=== PATIENT | male | born 1965 | race African-American/Black ===

== ENCOUNTER 2018-04-01 16:41 | Emergency (ER) | payer BC, OTHER ==
[2018-04-01 16:54] VITALS: TEMP 98; BMI 37.5
--- NOTE | 2018-04-01 17:15 | PDOC ---
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 The patient states that he's felt congested over the past few days and tried to clear his throat/lungs today by coughing. He states that he coughed hard and felt a sharp/pressure like pain in his R anterior/inferior chest which occurred only when he coughed or sneezed, is no longer present, did not radiate, and did not have any alleviating factors. He denies any current CP, SOB, nausea, vomiting, diaphoresis. Past History - Past Medical History Allergies/Adverse Reactions: Allergies Allergy/AdvReac Type Severity Reaction Status Date / Time No Known Allergies Allergy Verified 04/01/18 16:55 Home Medications: Ambulatory Orders Albuterol Sulfate Inhaler - [Ventolin Hfa Inhaler -] 1 - 2 inh PO Q4H 04/01/18 Apixaban [Eliquis -] 2.5 mg PO BID 04/01/18 Aspirin [ASA -] 81 mg PO DAILY 04/01/18 Anemia: No Asthma: No Cancer: No Cardiac Disorders: No CVA: No COPD: No CHF: No DVT: Yes (Pulmonary Embolism in 2017) Dementia: No Diabetes: No GI Disorders: No Disorders: No HTN: Yes Hypercholesterolemia: Yes (borderline) Liver Disease: No Seizures: No Thyroid Disease: No - Surgical History Abdominal Surgery: No Appendectomy: No Cardiac Surgery: No Cholecystectomy: No Lung Surgery: No Neurologic Surgery: No Orthopedic Surgery: Yes (December 28, 2015: Right total hip replacement) - Immunization History Immunization Up to Date: Yes - Suicide/Smoking/Psychosocial Hx Smoking History: Never smoked Have you smoked in the past 12 months: No Number of Cigarettes Smoked Daily: 4 If you are a former smoker, when did you quit?: 2012 Information on smoking cessation initiated: No Hx Alcohol Use: No Drug/Substance Use Hx: No Substance Use Type: None Hx Substance Use Treatment: No Review of Systems - Review of Systems Able to Perform ROS?: Yes Comments:: 08/26/18 17:34 GENERAL/CONSTITUTIONAL: No fever or chills. No weakness. HEAD, EYES, EARS, NOSE AND THROAT: No change in vision. No ear pain or discharge. No sore throat. CARDIOVASCULAR: Positive for resolved chest pain. No palpitations or lightheadedness. RESPIRATORY: No cough, wheezing, shortness of breath, or hemoptysis. GASTROINTESTINAL: No nausea, vomiting, diarrhea, constipation, or abdominal pain. GENITOURINARY: No dysuria, frequency, hematuria, or change in urination. MUSCULOSKELETAL: No joint or muscle swelling or pain. No neck or back pain. SKIN: No rash or lesions. NEUROLOGIC: No headache, numbness, tingling, weakness, loss of consciousness, or change in strength/sensation. ENDOCRINE: No increased thirst. No abnormal weight change. HEMATOLOGIC/LYMPHATIC: No anemia, easy bleeding, or history of blood clots. ALLERGIC/IMMUNOLOGIC: No hives or skin allergy. Is the patient limited Portuguese proficient: No *Physical Exam - Vital Signs Last Vital Signs Temp Pulse Resp BP Pulse Ox 98.0 F 74 16 121/74 98 04/01/18 16:46 04/01/18 16:46 04/01/18 16:46 04/01/18 16:46 04/01/18 16:46 - Physical Exam Comments: 04/01/18 17:34 GENERAL: Well developed, well nourished. Awake and alert. No acute distress. HEENT: Normocephalic, atraumatic. Hearing grossly normal. Moist mucous membranes. PERRLA, EOMI. No conjunctival pallor. Sclera are non-icteric. NECK: Supple. Full ROM. No JVD. CARDIOVASCULAR: Regular rate and rhythm. No murmurs, rubs, or gallops. No TTP over chest wall. PULMONARY: No evidence of respiratory distress. Lungs clear to auscultation bilaterally. No wheezing, rales or rhonchi. ABDOMINAL: Soft. Non-tender. Non-distended. No rebound or guarding. GENITOURINARY: No CVA tenderness bilaterally. MUSCULOSKELETAL: Normal range of motion at all joints. No bony deformities or tenderness. EXTREMITIES: No cyanosis. No clubbing. No edema. No calf tenderness or swelling. SKIN: Warm and dry. Normal capillary refill. No rashes. No jaundice. NEUROLOGICAL: Alert, awake, appropriate. Cranial nerves 2-12 grossly intact. Normal speech. Gait is normal without ataxia. PSYCHIATRIC: Cooperative. Good eye contact. Appropriate mood and affect. Heart Score/ECG Review - History History: Slightly suspicious - Electrocardiogram EKG: Normal - Age Age: 45-65 - Risk Factors Based on the list above the patient has:: No risk factors known - Troponin Troponin: </= normal limit - Score Heart Score - Total: 1 #1 General ECG Interpretation: Sinus Rhythm, Normal Rate, Normal Intervals, No acute ischemic changes Compared to previous ECG there are: No significant change 04/01/18 17:37 NSR vent rate 70 AL 154 QRS 94 QTc 413 No STD or SANTIAGO No signs of acute ischemia ED Treatment Course - LABORATORY CBC & Chemistry Diagram: 04/01/18 18:10 04/01/18 18:10 Medical Decision Making - Medical Decision Making 04/01/18 17:37 The patient is a 52M with a PMH of provoked PE who presents to the ER with complaints of pain with intrathoracic pressure (cough, sneezing) and congestion. Concern for MSK vs ACS vs (very low suspicion) for PE. Pending labs and imaging. Will reassess when labs and imaging are complete. 04/01/18 21:51 Labs and CTA of chest negative. Attending has discussed results with pt. Pt will f/u with PCP in 1-3 days or return with worsening symptoms. *DC/Admit/Observation/Transfer Diagnosis at time of Disposition: Atypical chest pain - Discharge Dispostion Disposition: HOME Condition at time of disposition: Stable - Referrals Referrals: Mendoza Anderson MD [Staff Physician] - Toni Ayers [Primary Care Provider] - - Patient Instructions Printed Discharge Instructions: DI for Atypical Chest Pain - Post Discharge Activity
--- NOTE | 2018-04-01 18:03 | PDOC ---
Attending Attestation - Resident Resident Name: Mina Flores - ED Attending Attestation I have performed the following: I have examined & evaluated the patient, The case was reviewed & discussed with the resident, I agree w/resident's findings & plan, Exceptions are as noted - Physicial Exam PE: 04/01/18 17:58 awake alert lungs clear bilaterally heart rrr no mrg. abd soft nt nd. skin warm and dry. - Medical Decision Making 04/01/18 17:58 differential diagnosis: pe, infection, msk strain, angina plan cta, r/o pe. lab inr, ekg reassess. <Estefany Li - Last Filed: 04/01/18 17:57> - HPI HPI: 04/01/18 18:15 The patient is a 52 year old male with a past medical history of saddle embolus PE who presents to the emergency department for evaluation of chest pain. Patient reports 2 day history of chest congestion. Pt reports feeling a pressure on the right side of his chest after coughing. He states he visited his Measurement Psychologist on Monday who said his blood levels were fine, but advised him to visit the emergency department immediately if he feels chest pain. Patient reports he has been doing push ups recently to get back into better shape. The patient denies shortness of breath, headache, dizziness, fevers, chills, nausea, vomiting, and any bowel/urinary issues. <Gene Pena - Last Filed: 04/01/18 18:16> Attestations - Attestations Documentation prepared by Gene Pena, acting as medical education manager for Estefany Li MD. <Gene Pena - Last Filed: 04/01/18 18:16>
[2018-04-01 18:23] LABS: BASO % 1.2 % (0-2.0); EOS % 9.3 % (0-4.5); HEMATOCRIT 41.7 % (35.4-49); HEMOGLOBIN 13.8 GM/dL (11.7-16.9); MCH 25.9 pg (25.7-33.7); MCHC 33.2 g/dl (32.0-35.9); MEAN PLT VOLUME 7.3 fl (7.5-11.1); MONO % 10.4 % (3.8-10.2); NEUT % 59.1 % (42.8-82.8); PLATELET COUNT 270 K/MM3 (134-434); RBC 5.34 M/mm3 (4.00-5.60); RDW 14.4 % (11.9-15.9); WHITE BLOOD COUNT 5.9 K/mm3 (4.0-10.0)
[2018-04-01 18:36] LABS: INR 1.01 (0.83-1.09); PROTHROMBIN TIME (PATIENT) 11.4 SEC (9.7-13.0)
[2018-04-01 18:39] LABS: ACTIVATED PTT 29.6 SECONDS (25.2-36.5)
[2018-04-01 18:45] LABS: ALBUMIN 3.8 g/dl (3.4-5.0); ANION GAP 11 MMOL/L (8-16); BILIRUBIN,TOTAL 0.3 mg/dL (0.2-1.0); BLOOD UREA NITROGEN 17 mg/dL (7-18); CALCIUM 8.9 mg/dL (8.5-10.1); CHLORIDE 109 mmol/L (98-107); CO2 25 mmol/L (21-32); GLUCOSE,RANDOM 87 mg/dL (74-106); POTASSIUM 3.8 mmol/L (3.5-5.1); SGOT/AST 22 U/L (15-37); SGPT/ALT 29 U/L (12-78); SODIUM 145 mmol/L (136-145); TOT PROT 7.8 g/dl (6.4-8.2)
[2018-04-01 18:48] LABS: ALK PHOS 62 U/L (45-117)
--- NOTE | 2018-04-01 19:43 | PDOC ---
*Physical Exam - Vital Signs Last Vital Signs Temp Pulse Resp BP Pulse Ox 98.0 F 74 16 121/74 98 04/01/18 16:46 04/01/18 16:46 04/01/18 16:46 04/01/18 16:46 04/01/18 16:46 ED Treatment Course - LABORATORY CBC & Chemistry Diagram: 04/01/18 18:10 04/01/18 18:10 - ADDITIONAL ORDERS Additional order review: Laboratory Results 04/01/18 04/01/18 18:10 18:10 PT with INR 11.40 INR 1.01 PTT (Actin FS) 29.6 Sodium 145 Potassium 3.8 Chloride 109 H Carbon Dioxide 25 Anion Gap 11 BUN 17 Creatinine 1.0 Creat Clearance w eGFR > 60 Random Glucose 87 Calcium 8.9 Total Bilirubin 0.3 AST 22 ALT 29 Alkaline Phosphatase 62 Creatine Kinase 270 Creatine Kinase Index 0.4 CK-MB (CK-2) 1.09 Troponin I 0.05 D Total Protein 7.8 Albumin 3.8 04/01/18 18:10 RBC 5.34 MCV 78.0 L MCHC 33.2 RDW 14.4 MPV 7.3 L Neutrophils % 59.1 Lymphocytes % 20.0 Monocytes % 10.4 H Eosinophils % 9.3 H Basophils % 1.2 Medical Decision Making - Medical Decision Making 04/01/18 19:43 I received signout on patient; pt is currently at CTA to r/o PE. information technology consultant called me to say that pt is refusing the test. 04/01/18 21:14 Patient Name: MICKY DENT Exam: CT angiogram of the thorax using pulmonary embolus protocol Clinical indication:Chest pain. Rule out pulmonary embolus. Prior studies:03/26/2016. Technique: Axial IV contrast-enhanced CT images of the thorax using pulmonary embolism protocol were performed. Coronal and sagittal reformats were performed. In addition, 3-D reconstruction and maximum projection maximum intensity pixel images of the pulmonary arterial tree were performed. Findings: There are no pulmonary emboli. There is some minimal right lower lobe dependent atelectatic changes. The remainder the pulmonary bregma is clear. There are no enlarged axillary lymph nodes, by size criteria. There are some enlarged right paratracheal lymph nodes reaching up to 1.6 cm in short axis dimension. There is a prevascular lymph node measuring 1.3 cm in short axis dimension. There is a subcarinal lymph node measuring 1.4 cm in short axis dimension. There is a left hilar lymph node measuring 0.9 cm in short axis. There is a right hilar lymph node measuring 1.0 cm in short axis dimension. These are similar in appearance to the prior study. This raises concern for sarcoidosis. The remainder of the mediastinal structures are unremarkable. The visualized portions of the thorax are within normal limits. Visualized bony structures are unremarkable for the patient's age. Impression: 1. No pulmonary emboli. 2. Stable bilateral symmetric mediastinal adenopathy which is nonspecific, but suggests sarcoidosis. Clinical correlation is recommended. Individualized dose optimization techniques were used for this CT. THIS DOCUMENT HAS BEEN ELECTRONICALLY SIGNED *DC/Admit/Observation/Transfer Diagnosis at time of Disposition: Atypical chest pain - Discharge Dispostion Disposition: HOME Condition at time of disposition: Stable Decision to Admit order: No - Referrals Referrals: Toni Ayers [Primary Care Provider] - Mendoza Anderson MD [Staff Physician] - - Patient Instructions Printed Discharge Instructions: DI for Atypical Chest Pain - Post Discharge Activity
[2018-04-01 22:54] VITALS: BP 121/70; PULSE 60
--- NOTE | 2018-04-02 16:45 | EKG ---
Test Reason : Blood Pressure : / mmHG Vent. Rate : 072 BPM Atrial Rate : 072 BPM P-R Int : 154 ms QRS Dur : 094 ms QT Int : 378 ms P-R-T Axes : 051 038 032 degrees QTc Int : 413 ms NORMAL SINUS RHYTHM NORMAL ECG WHEN COMPARED WITH ECG OF 19-APR-2016 18:20, NO SIGNIFICANT CHANGE WAS FOUND Confirmed by CARMENZA TALBOT MD ([id number]) on 04/02/2018 4:44:36 PM Referred By: Confirmed By:CARMENZA TALBOT MD
== END 2018-04-01 22:01 | disposition home or self-care (01) ==
LOC: JER 16:41
PROC: 3E033GC Introduction of Other Therapeutic Substance into Peripheral Vein, Percutaneous Approach (ICD-10-PCS; principal; 2018-04-01)
DX: R07.89 Other chest pain (principal); Z86.711 Personal history of pulmonary embolism; I10 Essential (primary) hypertension; E78.00 Pure hypercholesterolemia, unspecified
CPT/HCPCS: 36415; 71275-TC; 80053; 82550; 82553; 84484; 85025; 85610; 85730; 93005; 93010; 99283-25

== ENCOUNTER 2021-04-05 09:50 | Emergency (ER) | payer BC, OTHER ==
[2021-04-05 09:57] VITALS: BP 120/62; PULSE 74; TEMP 98.1; BMI 34.9
[2021-04-05] MEDS ORDERED: METHOCARBAMOL 500 MG TABLET PO ONE (10:36)
[2021-04-05] MEDS ORDERED: KETOROLAC TROMETHAMINE 30 MG/1 ML VIAL IM ONE (10:36)
[2021-04-05] MEDS ORDERED: METHOCARBAMOL 500 MG TABLET ONE (10:46)
[2021-04-05] MEDS ORDERED: KETOROLAC TROMETHAMINE 30 MG/1 ML VIAL ONE (10:47)
== END 2021-04-05 11:58 | disposition home or self-care (01) ==
LOC: JER 09:50
PROC: 3E0233Z Introduction of Anti-inflammatory into Muscle, Percutaneous Approach (ICD-10-PCS; principal; 2021-04-05)
DX: S13.9XXA Sprain of joints and ligaments of unspecified parts of neck, initial encounter (principal); M25.511 Pain in right shoulder; V89.9XXA Person injured in unspecified vehicle accident, initial encounter; Y92.9 Unspecified place or not applicable
CPT/HCPCS: 73030-TC-RT-FY; 99284-25